=== PATIENT | female | born 1990 | race American Indian/Alaskan Native ===

== ENCOUNTER 2019-01-27 00:17 | Emergency (ER) | payer OTHER ==
[2019-01-27 01:09] VITALS: BP 126/80
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
== END 2019-01-27 05:20 | disposition left against medical advice (07) ==
LOC: ED 00:17
DX: M25.562 Pain in left knee (principal); Z53.21 Procedure and treatment not carried out due to patient leaving prior to being seen by health care provider

== ENCOUNTER 2019-01-27 17:49 | Emergency (ER) | payer OTHER ==
[2019-01-27 18:16] VITALS: BP 125/69
[2019-01-27] MEDS ORDERED: IBUPROFEN PO ONE (20:35)
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
== END 2019-01-27 22:17 | disposition home or self-care (01) ==
LOC: ED 17:49
DX: M62.838 Other muscle spasm (principal); M54.2 Cervicalgia; M25.511 Pain in right shoulder; M25.512 Pain in left shoulder; F17.200 Nicotine dependence, unspecified, uncomplicated; F12.10 Cannabis abuse, uncomplicated; Z79.899 Other long term (current) drug therapy; V49.49XA Driver injured in collision with other motor vehicles in traffic accident, initial encounter; Y93.89 Activity, other specified; Y92.410 Unspecified street and highway as the place of occurrence of the external cause; Y99.8 Other external cause status
CPT/HCPCS: 72040

== ENCOUNTER 2019-02-15 01:56 | Emergency (ER) | payer OTHER ==
[2019-02-15] MEDS ORDERED: NORCO 5/325 PO ONE (02:18)
[2019-02-15] MEDS ORDERED: IBUPROFEN PO ONE (02:25)
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
[2019-02-15 03:12] VITALS: BP 125/65
== END 2019-02-15 03:12 | disposition home or self-care (01) ==
LOC: ED 01:56
DX: S16.1XXA Strain of muscle, fascia and tendon at neck level, initial encounter (principal); R51 Headache; F12.90 Cannabis use, unspecified, uncomplicated; Z87.891 Personal history of nicotine dependence; Z79.899 Other long term (current) drug therapy; V89.2XXA Person injured in unspecified motor-vehicle accident, traffic, initial encounter; Y93.89 Activity, other specified; Y92.488 Other paved roadways as the place of occurrence of the external cause; Y99.8 Other external cause status
CPT/HCPCS: 72040; 99283

== ENCOUNTER 2021-04-20 10:59 | Emergency (ER) | payer SELFPAY ==
[2021-04-20 11:38] VITALS: BP 132/81
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
--- NOTE | 2021-04-20 12:33 | XRay Report ---
RIGHT KNEE 3 VIEWS INDICATION / CLINICAL INFORMATION: right knee pain after fall COMPARISON: None available. FINDINGS: BONES and JOINT(S): No acute fracture or subluxation. No significant arthritis. SOFT TISSUES: No significant abnormality. ADDITIONAL FINDINGS: None. IMPRESSION: 1. No acute findings. Signer Name: Negrito Colbert MD Signed: 04/20/2021 12:28 PM Workstation Name: [id number]
--- NOTE | 2021-04-20 12:33 | XRay Report ---
LUMBAR SPINE 3 VIEWS INDICATION: Low back pain after fall. COMPARISON: No relevant prior imaging study available. FINDINGS: VERTEBRAE: No acute fracture. Normal alignment. DISC SPACES: No significant abnormality. FACET JOINTS: No significant abnormality. SOFT TISSUES: No significant abnormality. ADDITIONAL FINDINGS: No additional significant findings. IMPRESSION: 1. No acute findings. Signer Name: Negrito Colbert MD Signed: 04/20/2021 12:29 PM Workstation Name: [id number]
== END 2021-04-20 13:00 | disposition home or self-care (01) ==
LOC: ED 10:59
DX: M54.9 Dorsalgia, unspecified (principal); M25.561 Pain in right knee; Z87.891 Personal history of nicotine dependence; F10.20 Alcohol dependence, uncomplicated; F12.90 Cannabis use, unspecified, uncomplicated; W01.0XXA Fall on same level from slipping, tripping and stumbling without subsequent striking against object, initial encounter; Y93.89 Activity, other specified; Y92.89 Other specified places as the place of occurrence of the external cause; Y99.8 Other external cause status
CPT/HCPCS: 72100; 99283